=== PATIENT | female | born 1995 | race Caucasian/White ===

== ENCOUNTER 2023-04-13 07:52 | Outpatient (CLI) | payer OTHER, SELFPAY ==
[2023-04-13 08:49] LABS: Barbiturate Screen Urine Negative (Negative); Benzodiazepines Screen Urine Negative (Negative)
[2023-04-13 08:57] LABS: Amphetamine Screen Urine Negative (Negative); Cannabinoid Screen Urine Negative (Negative); Cocaine Screen Urine Negative (Negative); Methadone Screen Urine Negative (Negative); Opiate Screen Urine Negative (Negative); Phencyclidine Screen Urine Negative (Negative)
[2023-04-13 09:17] LABS: Basophils Percent Auto 0.1 % (0.2-1.2); Eosinophils Absolute Auto 0.2 K/mm3 (0-0.3); Eosinophils Percent Auto 2.1 % (0-4.4); Hematocrit 34.2 % (37.0-47.0); Hemoglobin 10.9 g/dL (12.0-15.0); Immature Granulocyte Absolute 0.03 K/mm3 (0.00-0.031); Immature Granulocyte Percent A 0.3 % (0-0.5); Lymphocytes Absolute Auto 1.68 K/mm3 (0.9-3.2); Lymphocytes Percent Auto 19.4 % (18.3-44.2); Mean Corpuscular HGB Conc 31.9 g/dl (32-36); Mean Corpuscular Volume 87.9 fl (80-100); Mean Platelet Volume 10.2 fl (7.4-10.4); Monocytes Absolute Auto 0.3 K/mm3 (0.1-0.6); Monocytes Percent Auto 3.3 % (2.6-8.5); Neutrophils Absolute Auto 6.5 K/mm3 (1.3-6.7); Neutrophils Percent Auto 74.8 % (45.5-73.1); Platelet Count Result 226 k/mm3 (150-375); Red Blood Count 3.89 M/mm3 (4.2-5.4); Red Cell Distribution Width 14.9 % (11.5-14.5); White Blood Count 8.7 K/mm3 (4.5-10.0)
[2023-04-13 09:31] LABS: Glucose 1 Hour PP 50gm Dose 148 mg/dL
[2023-04-13 10:07] LABS: HIV 1/2 Ab P24 Ag Result Negative (Negative)
[2023-04-13 10:42] LABS: Hepatitis B Surface Antigen Negative (Negative); Rubella IgG Antibody 6.4 IU/ML
[2023-04-13 10:46] LABS: HAV RESULT Negative (Negative); Hepatitis B Core IgM Result Negative (Negative)
[2023-04-13 10:58] LABS: Hepatitis C Virus Antibody Negative (Negative)
[2023-04-15 15:20] LABS: Rapid Plasma Reagin Non-Reactive (NonReactive)
[2023-04-17 12:52] LABS: Varicella IgG Antibody <135.00 Index (>=165.00)
== END 2023-04-13 07:53 | disposition home or self-care (01) ==
LOC: ANHLAB 07:54
PROVIDERS: PCP Pediatrics Adolescent Medicine; Visit Provider Obstetrics & Gynecology
DX: N94.89 Other specified conditions associated with female genital organs and menstrual cycle (principal)
CPT/HCPCS: 36415; 80074; 80307; 82947; 84702; 85025; 86592; 86644; 86703; 86747; 86762; 86787; 86850; 86900; 86901; 87086; G0432

== ENCOUNTER 2023-04-19 07:26 | Outpatient (CLI) | payer OTHER, SELFPAY ==
[2023-04-19 08:19] LABS: Glucose Fasting Gestational 94 mg/dL (>/=95)
[2023-04-19 10:25] LABS: Glucose 1 Hour Gest 160 mg/dL (>/=180)
[2023-04-19 11:07] LABS: Glucose 2 Hour Gest 132 mg/dL (>/= 155)
[2023-04-19 11:54] LABS: Glucose 3 Hour Gest 84 mg/dL (>/=140)
== END 2023-04-19 07:27 | disposition home or self-care (01) ==
LOC: ANHLAB 07:28
PROVIDERS: PCP Pediatrics Adolescent Medicine; Visit Provider Obstetrics & Gynecology
DX: R73.09 Other abnormal glucose (principal)
CPT/HCPCS: 36415; 82951; 82952

== ENCOUNTER 2023-06-24 09:45 | Outpatient (CLI) | payer OTHER, SELFPAY ==
[2023-06-24 12:11] LABS: Basophils Percent Auto 0.1 % (0.2-1.2); Eosinophils Absolute Auto 0.2 K/mm3 (0-0.3); Eosinophils Percent Auto 1.9 % (0-4.4); Hematocrit 33.7 % (37.0-47.0); Hemoglobin 10.6 g/dL (12.0-15.0); Immature Granulocyte Absolute 0.04 K/mm3 (0.00-0.031); Immature Granulocyte Percent A 0.4 % (0-0.5); Lymphocytes Absolute Auto 1.32 K/mm3 (0.9-3.2); Lymphocytes Percent Auto 13.9 % (18.3-44.2); Mean Corpuscular HGB Conc 31.5 g/dl (32-36); Mean Corpuscular Hemoglobin 28.1 pg (26-34); Mean Corpuscular Volume 89.4 fl (80-100); Mean Platelet Volume 10.7 fl (7.4-10.4); Monocytes Absolute Auto 0.4 K/mm3 (0.1-0.6); Monocytes Percent Auto 3.7 % (2.6-8.5); Neutrophils Absolute Auto 7.6 K/mm3 (1.3-6.7); Platelet Count Result 226 k/mm3 (150-375); Red Blood Count 3.77 M/mm3 (4.2-5.4); Red Cell Distribution Width 15.3 % (11.5-14.5); White Blood Count 9.5 K/mm3 (4.5-10.0)
[2023-06-24 12:28] LABS: Glucose 1 Hour PP 50gm Dose 123 mg/dL
[2023-06-24 13:03] LABS: HIV 1/2 Ab P24 Ag Result Negative (Negative)
[2023-07-02 17:46] LABS: Chenodeoxycholic Acid <0.5 umol/L (< OR = 3.9); Cholic Acid <0.5 umol/L (< OR = 2.8); Deoxycholic Acid <0.5 umol/L (< OR = 2.3); Total Bile Acids <1.5 umol/L (< OR = 8.3)
== END 2023-06-24 09:46 | disposition home or self-care (01) ==
PROVIDERS: Obstetrics & Gynecology; PCP Pediatrics Adolescent Medicine; Visit Provider Student in an Organized Health Care Education/Training Program
DX: O99.713 Diseases of the skin and subcutaneous tissue complicating pregnancy, third trimester (principal); L28.2 Other prurigo; Z3A.00 Weeks of gestation of pregnancy not specified
CPT/HCPCS: 36415; 82542; 82947; 85025; 86703; G0432

== ENCOUNTER 2023-08-05 08:33 | Outpatient (CLI) | payer OTHER, SELFPAY ==
--- NOTE | ~2023-08-05 | US_ITS ---
US OB limited 08/05/2023 09:04 Indication: Encounter for supervision of normal Procedure: High-resolution Limited obstetrical ultrasound Comparison: Outside Ultrasound dated 07/12/2023 Findings: There is a single living intrauterine in breech presentation. heart rate is 146 BPM. Placenta is fundal/posterior without previa. Amniotic fluid is below normal limits measurin g 6.0 cm (normal range for gestational age is 7.7-24.9 cm). Impression: 1: Single living intrauterine in breech presentation. 2: Oligohydramnios. Reviewed, dictated and finalized at location B. Impression: 1: Single living intrauterine in breech presentation. 2: Oligohydramnios.
== END 2023-08-05 08:34 | disposition home or self-care (01) ==
PROVIDERS: Visit Provider Obstetrics & Gynecology
DX: O41.00X0 Oligohydramnios, unspecified trimester, not applicable or unspecified (principal); O32.1XX0 Maternal care for breech presentation, not applicable or unspecified; Z3A.00 Weeks of gestation of pregnancy not specified
CPT/HCPCS: 76815

== ENCOUNTER 2023-08-06 08:28 | Outpatient (RCR) | payer OTHER, SELFPAY ==
--- NOTE | ~2023-08-06 | US_ITS ---
EXAMINATION: US OB BPP wo non-stress DATE: 08/06/2023 09:59 CDT INDICATION: Oligohydramnios TECHNIQUE: Real-time transabdominal obstetric ultrasound. FINDINGS: Comparison to 08/05/2023 There is a single living fetus in breech presentation. The placenta is fundal without placenta previ a. cardiac activity and movement is noted with a heart rate of 144 beats per minute. A FI is below normal limits measuring 5.6 cm (normal range for gestational age is 7.7-24.9 cm). Biophysical profile: breathin of 2 movement: 2 of 2 tone: 2 of 2 Amniotic flud pocket: 2 of 2 Total score: 8 of 8 IMPRESSION: 1. Single living intrauterine in breech presentation. 2: Total biophysical profile score of 8/8. 3: Oligohydramnios. Reviewed, dictated and finalized at location L.
[2023-08-06 09:10] VITALS: BP 113/59; PULSE 96
== END 2023-09-12 11:28 | disposition home or self-care (01) ==
LOC: ANHOBOP 08:28
PROVIDERS: Visit Provider Obstetrics & Gynecology
DX: O41.03X0 Oligohydramnios, third trimester, not applicable or unspecified (principal); Z3A.36 36 weeks gestation of pregnancy
CPT/HCPCS: 59025; 76819

== ENCOUNTER 2023-08-08 07:12 | Inpatient (IN) | payer OTHER, SELFPAY ==
[2023-08-08] VITALS (52 sets, daily range): BP systolic 82–120; BP diastolic 38–77; PULSE 58–91; RESP 15–18; TEMP 36.3–36.9; O2SAT 94–100; BMI 40.7
--- NOTE | 2023-08-08 07:22 | PM.IMHP ---
H&P: HPI History of Present Illness Date/Time: 08/07/23 18:33 Chief Complaint: scheduled Narrative: Sarah is a 28yo @ 37.1wks who presents for scheduled due to breech malpresentation and oligohydramnios. Oligo was diagnosed 08/05/23; did have reassuring NST/BPP on 08/06/23. She reports good movement. No ctx, vb, lof. She has had regular care. Her is complicated by: - Late PNC @ ~20wks - Asthma - Obesity; BMI 41 - Varicella and rubella non-immune - Abnormal 1 hour; normal 3 hours - BREECH MALPRESENTATION - Oligohydramnios Review of Systems Constitutional: Constitutional: Denies chills, Denies fever(s) and Denies headache(s) Eyes: Eyes: Denies change in vision ENT: Denies headache(s) Cardiovascular: Cardiovascular: Denies chest pain and Denies dyspnea Respiratory: Respiratory: Denies dyspnea Genitourinary: Genitourinary: Denies abnormal vaginal bleeding and Denies vaginal discharge Neurologic: Denies headache(s) Psychiatric: Psychiatric: Denies anxiety and Denies depression [facility] Past Medical History Medical History Asthma Obesity Family History Family History Other Unknown family medical history Social History Social History Smoking status: Never smoker Alcohol intake: never Substance use: never Substance use type: does not use Lack of Transportation: No Lack of Food: Never True Current Housing: I Have Housing Concerned About Future Housing: No Difficulty Paying Gas/Electric Bills: No Difficulty Paying for Meds: No Currently Unemployed: No Education: Associate Degree Difficulty w/ Childcare or Family Care: No Living arrangements: with family Additional living arrangements comments: spouse and kids Occupation/Education: unemployed Gender identity (if verbalized by the patient): Female Sexual Orientation (if Verbalized by the Patient): Straight or Heterosexual Spiritual care concerns: No Meds Home Medications and Allergies Home Medications Medication Instructions Recorded Confirmed Type vitamin no.167-folic acid 1 tablet PO DAILY 04/29/23 08/05/23 History 400 mcg-dha 25 mg chewable tablet (One-A-Day ) ferrous sulfate 325 mg (65 mg 325 mg PO BID 05/27/23 08/05/23 History iron) tablet albuterol sulfate 90 mcg/actuation 1 inh inhalation Q4H #8.5 grams 07/08/23 08/05/23 Rx aerosol inhaler triamcinolone acetonide 0.1 % 1 applic topical BID #80 grams 07/15/23 08/05/23 Rx topical cream Allergies Allergy/AdvReac Type Severity Reaction Status Date / Time Penicillins Allergy Hives Verified 08/05/23 15:14 Exam Const: General: cooperative, no acute distress and obese Nutritional Appearance: obese Orientation/consciousness: patient oriented x3 Resp: Effort & Inspection: normal respiratory effort Cardio: Rate: regular rate GI: GI Palp: No abdominal tenderness : Other: FHT's: 145's/ mod josseline/ + accels/ no decels - cat 1 TOCO: no ctx's Membranes: intact Presentation: BREECH ON BEDSIDE US Skin: General skin exam: normal color Neuro: General: patient oriented x3 Extrem: General: normal to inspection Psych: Appearance: grossly normal Affect: normal affect Attitude: cooperative Assessment and Plan Assessment and plan (1) Breech presentation: Qualifiers: Fetus number: single or unspecified fetus Qualified Code(s): O32.1XX0 - Maternal care for breech presentation, not applicable or unspecified Code(s): O32.1XX0 - Maternal care for breech presentation, not applicable or unspecified Status: Acute (2) Oligohydramnios: Qualifiers: Fetus number: single or unspecified fetus Trimester: third trimester Qualified Code(s): O41.03X0 - Ol
--- NOTE | 2023-08-08 07:29 | WPDHPUPDATE1 ---
History and Physical Update Update Date/Time: 08/08/23 07:29 History and Physical has been reviewed, including an updated exam of the patient. There are NO changes in the patient's condition. Risks, benefits, and alternatives have been discussed and questions answered. Patient agrees to proceed with procedure.
[2023-08-08] MEDS: LACTATED RINGERS 1,000 ML 125 ML IV CONT ×2 (07:30→07:53)
[2023-08-08] MEDS: ceFAZolin 2 GM/D5W 50 ML 2 GM/50 ML BAG IVPB (07:53)
[2023-08-08 08:01] LABS: Basophils Percent Auto 0.3 % (0.2-1.2); Eosinophils Absolute Auto 0.2 K/mm3 (0-0.3); Eosinophils Percent Auto 1.9 % (0-4.4); Hematocrit 35.2 % (37.0-47.0); Hemoglobin 11.2 g/dL (12.0-15.0); Immature Granulocyte Absolute 0.03 K/mm3 (0.00-0.031); Immature Granulocyte Percent A 0.4 % (0-0.5); Lymphocytes Absolute Auto 1.66 K/mm3 (0.9-3.2); Mean Corpuscular HGB Conc 31.8 g/dl (32-36); Mean Corpuscular Hemoglobin 28.9 pg (26-34); Mean Platelet Volume 10.8 fl (7.4-10.4); Monocytes Absolute Auto 0.5 K/mm3 (0.1-0.6); Monocytes Percent Auto 5.8 % (2.6-8.5); Neutrophils Absolute Auto 5.6 K/mm3 (1.3-6.7); Neutrophils Percent Auto 70.6 % (45.5-73.1); Platelet Count Result 237 k/mm3 (150-375); Red Blood Count 3.87 M/mm3 (4.2-5.4); Red Cell Distribution Width 16.9 % (11.5-14.5); White Blood Count 7.9 K/mm3 (4.5-10.0)
--- NOTE | 2023-08-08 08:08 | WPDANESEPPF ---
Anes - Initial Pre Proc Eval Procedure: Operation Date: 08/08/23 07:30 Proposed Procedures p Section - Tena Smith MD Date/Time: 08/08/23 08:08 Surgeon: Tena Smith MD Pre Op Diagnosis: C/S Patient Data Age: 28 Gender: F Height: 1.7 m Weight: 118 kg Last Vital Signs Pulse 91 08/08/23 07:46 BP 102/57 L 08/08/23 07:46 O2 Del Method Room Air 08/08/23 07:21 Allergies Allergy/AdvReac Type Severity Reaction Status Date / Time Penicillins Allergy Hives Verified 08/05/23 15:14 Home Medications Medication Instructions Recorded Confirmed Type vitamin no.167-folic acid 1 tablet PO DAILY 04/29/23 08/05/23 History 400 mcg-dha 25 mg chewable tablet (One-A-Day ) ferrous sulfate 325 mg (65 mg 325 mg PO BID 05/27/23 08/05/23 History iron) tablet albuterol sulfate 90 mcg/actuation 1 inh inhalation Q4H #8.5 grams 07/08/23 08/05/23 Rx aerosol inhaler triamcinolone acetonide 0.1 % 1 applic topical BID #80 grams 07/15/23 08/05/23 Rx topical cream Laboratory Tests 08/08/23 07:19 WBC 7.9 K/mm3 (4.5-10.0) RBC 3.87 L M/mm3 (4.2-5.4) Hgb 11.2 L g/dL (12.0-15.0) Hct 35.2 L % (37.0-47.0) MCV 91.0 fl (80-100) MCH 28.9 pg (26-34) MCHC 31.8 L g/dl (32-36) RDW 16.9 H % (11.5-14.5) Plt Count 237 k/mm3 (150-375) MPV 10.8 H fl (7.4-10.4) Immature Gran % (Auto) 0.4 % (0-0.5) Neut % (Auto) 70.6 % (45.5-73.1) Lymph % (Auto) 21.0 % (18.3-44.2) [place] % (Auto) 5.8 % (2.6-8.5) Eos % (Auto) 1.9 % (0-4.4) Baso % (Auto) 0.3 % (0.2-1.2) Lymph # (Auto) 1.66 K/mm3 (0.9-3.2) [place] # (Auto) 0.5 K/mm3 (0.1-0.6) Eos # (Auto) 0.2 K/mm3 (0-0.3) Baso # (Auto) 0.0 K/mm3 (0.0-0.1) Abs Immat Gran (auto) 0.03 K/mm3 (0.00-0.031) Absolute Neuts (auto) 5.6 K/mm3 (1.3-6.7) Absolute Nucleated RBC 0.0 K/mm3 (0.0-0.012) Nucleated RBC % 0.0 % (0.0-0.2) RPR Pending Patient hx anesthesia problems: none Family hx anesthesia problems: none Results Review: All pre-operative results and documents have been reviewed as part of the pre-operative evaluation. [facility] Past Medical History Medical History Asthma Obesity Family History Family History Other Unknown family medical history Social History Social History Smoking status: Never smoker Second hand tobacco smoke exposure: No Alcohol intake: never Substance use: never Substance use type: does not use Lack of Transportation: No Lack of Food: Never True Current Housing: I Have Housing Concerned About Future Housing: No Difficulty Paying Gas/Electric Bills: No Difficulty Paying for Meds: No Currently Unemployed: No Education: High School Diploma/GED Difficulty w/ Childcare or Family Care: No Living arrangements: with family Additional living arrangements comments: spouse and kids Occupation/Education: unemployed Gender identity (if verbalized by the patient): Female Sexual Orientation (if Verbalized by the Patient): Straight or Heterosexual Spiritual care concerns: No Anes - Eval Final PreProcedure Day of Procedure 08/08/23 08:08 Patient weight: morbidly obese Heart: regular rate and rhythm Lungs: clear to auscultation Airway: Mallampati scale class II Neurological: alert and oriented Last oral intake: >/= 8 hours ASA classification: III Emergent: no Anesthetic plan: proceed Anesthesia type and monitoring: regional spinal and standard monitoring Results Review: All pre-operative results and documents have been reviewed as part of the pre-operative evaluation. Informed Consent: The patient's anesthetic plan and its attendant risks and benefits were discussed with
--- NOTE | 2023-08-08 09:05 | P.PCNOB_ITS ---
OB - Delivery Note Procedure Delivery date: 08/08/23 Procedure: Procedures Operation Date: 08/08/23 07:30 <No data on this case meets the specified criteria> Events: Breech Presentation and Oligohydramnios Route of delivery: Quantitative Blood Loss (ml): 385 Anesthesia type: Spinal Disposition: Floor D[place]ne Baby Date of : 08/08/23 Time of : 08:29 Weeks of gestation at delivery: 37 (.1) Infant gender: Female Weight (pounds): 7 Weight (ounces): 1 presentation: breech Placenta delivery description: Expressed Cord Vessel Description: 3 Vessels and Delayed Cord Clamping score one minute: 8 score five minutes: 9 Narrative: She was counseled on all risks and benefits in detail. She was taken to the operating room where spinal was placed. She was then prepped and draped in the normal sterile fashion. She received 2g Ancef and a time out was performed. A Pfannenstiel incision was made in the skin and carried down to the underlying fascia. The fascia was nicked on either side of the midline and the fascial incision was extended laterally and superiorly using curved Hernandez scissors. The fascia was then elevated using Vera clamps and the underlying rectus muscles were dissected off the fascia, superiorly and inferiorly. The rectus muscles were then in the midline and the peritoneum was entered bluntly. Once adequate exposure was obtained, a Mobius self retractor was placed within the abdomen. A bladder flap was created. A low transverse incision was made on the lower uterine segment and clear fluid was noted. The buttocks were brought to the hysterotomy and the fetus was delivered doing normal breech maneuvers without issue. The infant had spontaneous cry and the mouth and nose were bulb suctioned. The cord was delayed, but then doubly clamped and cut and the was handed off to the awaiting pediatric nurse. A segment of the cord was collected for cord gases. The remaining cord blood was collected for typing. With pitocin infusing, the placenta delivered with gentle traction on the cord without complications. The uterus was then cleared out of all clots and debris using a clean, moist lap. The hysterotomy was then repaired in a running, interlocking fashion using 0 Vicryl. A second layer imbricating suture was then made using 0 Vicryl. An additional figure of eight stitch using 0 Vicryl was placed on the right, lower side of the hysterotomy, and it was found to be hemostatic and good uterine tone was noted. The bilateral adnexa were examined and found to be normal. The pelvis was cleared of all clots and fluid. The Mobius retractor was removed from the abdomen. The peritoneum, muscle, and fascia were examined and made hemostatic with bovie cautery. The fascia was then repaired using a 0 Vicryl suture in a running fashion. The subcutaneous tissue was then irrigated and made hemostatic with bovie cautery. The subcutaneous tissue was then reapproximated using 2-0 Vicryl. The skin was then closed using 4-0 Monocryl in a running subcuticular fashion. Sponge, lap, needle and instrument counts were correct at the end of the procedure x2. The patient tolerated the procedure well and was taken to recovery in a stable condition. [facility] Delivery Billing Delivery Delivery: Delivery Charge
[2023-08-08] MEDS: OXYTOCIN 30 UNITS/NS 500 ML 30 UNITS/500 ML BAG 125 UNITS IV CONT (10:15)
[2023-08-08] MEDS: fentaNYL CITRATE INJ (*CRX) 100 MCG/2 ML VIAL 25 MCG IV PUSH (12:10)
--- NOTE | 2023-08-08 12:15 | OBPPTRN ---
Patient transferred to post room #283 via stretcher. Support person present. Oriented to unit, room, information board, rooming in, admission packet and security measures. Patient verbalizes understanding.
[2023-08-08] MEDS: KETOROLAC 30 MG/ML VIAL (*BKC) IV PUSH ×2 (13:14→18:59)
--- NOTE | 2023-08-08 13:25 | PC.NURSE ---
Breast pump provided due to separation from infant. Instructions given on cleaning, care, usage, that there should be no pain, pumping schedule for milk production, collection, and storage of human milk. Patient was assessed for correct placement, flange size, to pump for comfort and nipple stretching/stimulation for adequate milk production every 3 hours (8 times in 24 hours) 1-2 times at night. Mother voiced understanding of the education shared along with mom and baby guide for additional resource information.
[2023-08-08] MEDS: DEXTROSE 5%/0.45% SOD CHL 1,000 ML 125 ML IV CONT (15:00)
[2023-08-08] MEDS: DOCUSATE SODIUM 100 MG CAPSULE PO (16:35)
[2023-08-08] MEDS: HYDROcodone/acetaminophen (*CRX) 5-325 MG TABLET 1 TAB PO (22:52)
[2023-08-08] MEDS: ALBUTEROL SULFATE (*SP) AEROSOL 1 PUFF INHALATION (23:11)
[2023-08-09] MEDS: HYDROcodone/acetaminophen (*CRX) 5-325 MG TABLET 1 TAB PO ×3 (02:25→08:54)
[2023-08-09] MEDS: IBUPROFEN 600 MG TABLET PO ×3 (02:25→15:01)
[2023-08-09 02:56] LABS: Basophils Percent Auto 0.3 % (0.2-1.2); Eosinophils Absolute Auto 0.2 K/mm3 (0-0.3); Eosinophils Percent Auto 1.8 % (0-4.4); Hematocrit 30.2 % (37.0-47.0); Hemoglobin 9.7 g/dL (12.0-15.0); Immature Granulocyte Absolute 0.04 K/mm3 (0.00-0.031); Immature Granulocyte Percent A 0.4 % (0-0.5); Lymphocytes Absolute Auto 2.44 K/mm3 (0.9-3.2); Lymphocytes Percent Auto 25.3 % (18.3-44.2); Mean Corpuscular HGB Conc 32.1 g/dl (32-36); Mean Corpuscular Hemoglobin 29.6 pg (26-34); Mean Corpuscular Volume 92.1 fl (80-100); Mean Platelet Volume 10.8 fl (7.4-10.4); Monocytes Absolute Auto 0.7 K/mm3 (0.1-0.6); Monocytes Percent Auto 7.2 % (2.6-8.5); Neutrophils Absolute Auto 6.3 K/mm3 (1.3-6.7); Platelet Count Result 218 k/mm3 (150-375); Red Blood Count 3.28 M/mm3 (4.2-5.4); Red Cell Distribution Width 16.8 % (11.5-14.5); White Blood Count 9.7 K/mm3 (4.5-10.0)
--- NOTE | 2023-08-09 07:35 | PM.OBPNVD ---
OB - PN: Subj Subjective Date/time seen: 08/09/23 07:35 Narrative: POD#1 Sarah reports doing well today. 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 Her pain is controlled. She is tolerating regular diet, voiding, passing gas, and ambulating without issues. She denies any issues with her incision. She is breast feeding. OB - PN: Obj Data Labs 08/09/23 02:30 Labs: Laboratory Results - last 24 hr 08/08/23 08/09/23 07:19 02:30 WBC 7.9 9.7 RBC 3.87 L 3.28 L Hgb 11.2 L 9.7 L Hct 35.2 L 30.2 L MCV 91.0 92.1 MCH 28.9 29.6 MCHC 31.8 L 32.1 RDW 16.9 H 16.8 H Plt Count 237 218 MPV 10.8 H 10.8 H Immature Gran % (Auto) 0.4 0.4 Neut % (Auto) 70.6 65.0 Lymph % (Auto) 21.0 25.3 [place] % (Auto) 5.8 7.2 Eos % (Auto) 1.9 1.8 Baso % (Auto) 0.3 0.3 Lymph # (Auto) 1.66 2.44 [place] # (Auto) 0.5 0.7 H Eos # (Auto) 0.2 0.2 Baso # (Auto) 0.0 0.0 Abs Immat Gran (auto) 0.03 0.04 H Absolute Neuts (auto) 5.6 6.3 Absolute Nucleated RBC 0.0 0.0 Nucleated RBC % 0.0 0.0 Blood Type A Positive Antibody Screen Negative OB - PN A/P Assessment and Plan (1) S/P section: Code(s): Z98.891 - History of uterine scar from previous surgery Status: Acute (2) Oligohydramnios: Qualifiers: Fetus number: single or unspecified fetus Trimester: third trimester Qualified Code(s): O41.03X0 - Oligohydramnios, third trimester, not applicable or unspecified Code(s): O41.00X0 - Oligohydramnios, unspecified trimester, not applicable or unspecified Status: Acute (3) Breech presentation: Qualifiers: Fetus number: single or unspecified fetus Qualified Code(s): O32.1XX0 - Maternal care for breech presentation, not applicable or unspecified Code(s): O32.1XX0 - Maternal care for breech presentation, not applicable or unspecified Status: Acute Plan day: 1 Plan: routine care Time Spent With Patient Time: Total time spent is greater than 50% in coordination of care (as documented) at patient's floor/unit and/or counseling patient: Review of Systems Constitutional: Constitutional: Denies chills, Denies fever(s) and Denies headache(s) Eyes: Eyes: Denies change in vision ENT: Denies dizziness and Denies headache(s) Cardiovascular: Cardiovascular: Denies chest pain, Denies palpitations and Denies dyspnea Respiratory: Respiratory: Denies cough and Denies dyspnea Gastrointestinal: Gastrointestinal: Denies nausea and Denies vomiting Genitourinary: Comments: normal bleeding Neurologic: Denies dizziness and Denies headache(s) Endocrine: Endocrine: Denies palpitations Exam Const: General: cooperative, comfortable and no acute distress Orientation/consciousness: patient oriented x3 Resp: Effort & Inspection: normal respiratory effort Auscultation: clear to auscultation bilaterally Cardio: Rate: regular rate GI: Inspection: non-distended and incision (covered with clean dressing) GI Palp: Yes abdominal tenderness (appropriate) and Yes Soft to palpation Auscultation: normal bowel sounds : Other: fundus firm Skin: General skin exam: normal color Neuro: General: patient oriented x3 Extrem: General: normal to inspection Psych: Appearance: grossly normal Affect: normal affect Attitude: cooperative
--- NOTE | 2023-08-09 08:06 | PM.OBPNVD ---
OB - PN: Subj Subjective Date/time seen: 08/09/23 08:06 Patient comments: no complaints, pain well controlled, tolerating diet and flatus present Narrative: Patient resting comfortably in bed this morning. She states her pain is controlled with p.o. medications. She states her bleeding is improving. She is tolerating p.o. and denies any nausea or vomiting. OB - PN: Obj Data Labs 08/09/23 02:30 Labs: Laboratory Results - last 24 hr 08/08/23 08/09/23 07:19 02:30 WBC 9.7 RBC 3.28 L Hgb 9.7 L Hct 30.2 L MCV 92.1 MCH 29.6 MCHC 32.1 RDW 16.8 H Plt Count 218 MPV 10.8 H Immature Gran % (Auto) 0.4 Neut % (Auto) 65.0 Lymph % (Auto) 25.3 [place] % (Auto) 7.2 Eos % (Auto) 1.8 Baso % (Auto) 0.3 Lymph # (Auto) 2.44 [place] # (Auto) 0.7 H Eos # (Auto) 0.2 Baso # (Auto) 0.0 Abs Immat Gran (auto) 0.04 H Absolute Neuts (auto) 6.3 Absolute Nucleated RBC 0.0 Nucleated RBC % 0.0 Blood Type A Positive Antibody Screen Negative OB - PN A/P Plan day: 1 Plan: routine care Comments: patient doing well H/H 9.7/30.2, will continue iron supplementation afebrile, VSS incision C/D/I encouraged ambulation today continue routine post op care Time Spent With Patient Time: Total time spent is greater than 50% in coordination of care (as documented) at patient's floor/unit and/or counseling patient: Time with patient: less than 15 minutes Review of Systems Constitutional: Constitutional: Reports no additional constitutional complaints Cardiovascular: Cardiovascular: Reports no additional cardiovascular complaints Respiratory: Respiratory: Reports no additional respiratory complaints Gastrointestinal: Gastrointestinal: Reports no additional gastrointestinal complaints Genitourinary: Genitourinary: Reports no additional female genitourinary complaints Exam Const: General: comfortable and no acute distress Resp: Effort & Inspection: normal respiratory effort Auscultation: clear to auscultation bilaterally Cardio: Rate: regular rate GI: GI Palp: Yes Soft to palpation, Yes Tenderness to palpation present (GI) (around incision ) and No Guarding due to palpation present (GI) Auscultation: normal bowel sounds Other: incision C/D/I, covered with Dermabond Psych: Appearance: grossly normal Mental Status: mental status grossly normal Affect: normal affect
[2023-08-09] MEDS: DOCUSATE SODIUM 100 MG CAPSULE PO ×2 (08:18→16:58)
[2023-08-09] MEDS: POLYSACCHARIDE IRON COMPLEX 150 MG CAPSULE PO ×2 (08:18→16:58)
[2023-08-09] MEDS: MULTIVIT/MIN/PREN/FOL AC/IRON TABLET 1 TAB PO (08:18)
[2023-08-09 09:30] VITALS: BP 99/57; PULSE 85; RESP 16; TEMP 36.8; O2SAT 97
[2023-08-09] MEDS: LIDOCAINE 5% PATCH 1 PATCH TRANSDERM (10:40)
[2023-08-09 10:56] LABS: Rapid Plasma Reagin Non-Reactive (NonReactive)
[2023-08-09] MEDS: SIMETHICONE 80 MG TAB.CHEW PO ×2 (11:55→15:02)
[2023-08-09] MEDS: HYDROcodone/acetaminophen (*CRX) 10-325 MG TABLET 1 TAB PO ×3 (11:55→18:31)
--- NOTE | 2023-08-09 14:16 | WPDANLDPN2 ---
Anes-Prog Note L&D Date/Time: 08/09/23 14:16 Comfortable throughout: section Neuraxial method: spinal Epidural/Spinal procedure site: clean & non-tender Neuro status: Neuro function grossly intact. Cardiovascular status: normal Respiratory status: normal Airway patency: baseline Mental status: baseline Post-Op hydration status: normal Vital Signs: Last Vital Signs Temp 36.8 C 08/09/23 09:30 Pulse 85 08/09/23 09:30 Resp 16 08/09/23 09:30 BP 99/57 L 08/09/23 09:30 Pulse Ox 97 08/09/23 09:30 O2 Del Method Room Air 08/09/23 08:20 Pain score (VAS): 2/10 I/O: Intake & Output 08/08/23 08/09/23 08/09/23 23:59 07:59 15:59 Intake Total 1540 1000 Output Total 2600 1700 Balance -1060 -700 Post-procedural complaints: none Patient feedback: Patient satisfied with anesthetic care.
--- NOTE | 2023-08-09 14:16 | WPDANLDNPN2 ---
Anes-Prog Note L&D-Neuraxial Date/Time: 08/09/23 14:16 Neuraxial medications: intrathecal PF morphine Opiod-related complaints: none Patient feedback: Patient satisfied with post-operative pain management.
--- NOTE | 2023-08-09 19:33 | PC.NURSE ---
[id number] Mother verbalizes she is able to independently latch with appropriate positioning/alignment. She denies any nipple discomfort and is responsively . is currently meeting outcomes for weight, output, jaundice and feeding frequencies of 8-12 times in 24 hours. Mother declines any additional assistance/education at this time. Mother is encouraged to call for assistance if her doesn?t latch or there is discomfort with latching. Mother voiced understanding of information shared, Shamika RN was a big help today and I reminded of the mom/baby guide for an additional resource. Reported to the primary RN.
[2023-08-09 20:45] VITALS: BP 112/71; PULSE 82; RESP 16; TEMP 36.4; O2SAT 97
[2023-08-10] MEDS: IBUPROFEN 600 MG TABLET PO ×3 (04:00→19:40)
[2023-08-10] MEDS: HYDROcodone/acetaminophen (*CRX) 10-325 MG TABLET 1 TAB PO ×2 (04:03→15:10)
[2023-08-10] MEDS: DOCUSATE SODIUM 100 MG CAPSULE PO ×2 (09:35→17:36)
[2023-08-10] MEDS: MULTIVIT/MIN/PREN/FOL AC/IRON TABLET 1 TAB PO (09:35)
[2023-08-10] MEDS: POLYSACCHARIDE IRON COMPLEX 150 MG CAPSULE PO ×2 (09:35→17:36)
[2023-08-10 09:40] VITALS: BP 100/52; PULSE 88; RESP 18; TEMP 36.4; O2SAT 97
--- NOTE | 2023-08-10 10:46 | PM.OBDSVD ---
DS: Admitting Diagnosis Discharge Date 08/10/23 Admitting Diagnosis malpresentation oligohydramnios intrauterine at term DS: Discharge Diagnosis Discharge Diagnosis (1) Breech presentation: Qualifiers: Fetus number: single or unspecified fetus Qualified Code(s): O32.1XX0 - Maternal care for breech presentation, not applicable or unspecified Code(s): O32.1XX0 - Maternal care for breech presentation, not applicable or unspecified Status: Acute (2) Oligohydramnios: Qualifiers: Fetus number: single or unspecified fetus Trimester: third trimester Qualified Code(s): O41.03X0 - Oligohydramnios, third trimester, not applicable or unspecified Code(s): O41.00X0 - Oligohydramnios, unspecified trimester, not applicable or unspecified Status: Acute (3) S/P section: Code(s): Z98.891 - History of uterine scar from previous surgery Status: Acute OB - DS: Summary OB Procedures : None OB Procedures Intrapartum: OB Procedures: : None Peripartum Data Delivery Method: Section Procedures: Procedures Operation Date: 08/08/23 07:30 Actual Procedure Side Surgeon p Section Not Applicable Tena Smith MD complications: none Status at Discharge Functional status at discharge: independent ambulation Overall status at discharge: patient is progressing back to baseline Time Spent with Patient Time attestation: Total time spent providing and/or coordinating discharge services: Time spent: Less than 30 minutes Exam Const: General: comfortable and no acute distress Resp: Effort & Inspection: normal respiratory effort Auscultation: clear to auscultation bilaterally Cardio: Rate: regular rate GI: Inspection: non-distended GI Palp: Yes Soft to palpation, No Firmness to palpation present (GI), Yes Tenderness to palpation present (GI) (mild tenderness over incision ) and No Guarding due to palpation present (GI) Auscultation: normal bowel sounds Psych: Appearance: grossly normal Mental Status: mental status grossly normal DS: Data Data Completed and Pending Pending studies at discharge: Pending at discharge 08/08/23 08:31 Surgical [PTH] Routine Labs on day of discharge: Labs from last 24 hours 08/08/23 07:19 RPR Non-reactive Discharge Plan Discharge Attending physician on discharge: Tena Smith Discharging Clinician: Tena Smith Anticipated Discharge Date/Time: 08/11/23 11:00 Patient Disposition: Home, Self-Care Activity: may shower, may drive after 2 weeks and pelvic rest Diet: regular Discharge Instructions: No heavy lifting >10lbs for 6 weeks. Remove dressing on 08/14/23. Patient Instructions: (DC) Stand Alone Forms: General Discharge Information Follow-up/Referrals: Tena Smith MD [Physician] - 4 Weeks Discharge Medications: New hydrocodone-acetaminophen 5-325 mg Tablet 1 tablet PO Q3H PRN (Reason: Moderate Pain (4-6)) Qty: 24 0RF docusate sodium 100 mg Capsule 100 mg PO BID Qty: 120 0RF ibuprofen 600 mg Tablet 600 mg PO Q6H PRN (Reason: Cramping) Qty: 40 0RF acetaminophen 500 mg tablet 1,000 mg PO TID Qty: 60 0RF Continued One-A-Day 400 mcg- 25 mg tablet,chewable 1 tablet PO DAILY ferrous sulfate 325 mg (65 mg iron) tablet 325 mg PO BID albuterol sulfate 90 mcg/actuation HFA aerosol inhaler 1 inh inhalation Q4H Qty: 8.5 0RF Discontinued triamcinolone acetonide 0.1 % cream 1 applic topical BID Qty: 80 0RF Date of admission: 08/08/23 07:12 Primary Care Provider: 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
[2023-08-10] MEDS: LIDOCAINE 5% PATCH 1 PATCH TRANSDERM (15:12)
[2023-08-10] MEDS: HYDROcodone/acetaminophen (*CRX) 5-325 MG TABLET 1 TAB PO (19:40)
[2023-08-10] MEDS: SIMETHICONE 80 MG TAB.CHEW PO (19:40)
[2023-08-10 20:05] VITALS: BP 122/72; PULSE 84; RESP 16; TEMP 36.3; O2SAT 100
[2023-08-11] MEDS: SIMETHICONE 80 MG TAB.CHEW PO (00:01)
[2023-08-11] MEDS: HYDROcodone/acetaminophen (*CRX) 10-325 MG TABLET 1 TAB PO (00:01)
[2023-08-11] MEDS: IBUPROFEN 600 MG TABLET PO ×2 (03:28→09:11)
[2023-08-11] MEDS: LIDOCAINE 5% PATCH 1 PATCH TRANSDERM (03:29)
[2023-08-11] MEDS: HYDROcodone/acetaminophen (*CRX) 5-325 MG TABLET 1 TAB PO ×2 (03:29→09:11)
[2023-08-11 07:45] VITALS: BP 119/71; PULSE 80; RESP 18; TEMP 36.6; O2SAT 98
[2023-08-11] MEDS: POLYSACCHARIDE IRON COMPLEX 150 MG CAPSULE PO (09:11)
[2023-08-11] MEDS: MULTIVIT/MIN/PREN/FOL AC/IRON TABLET 1 TAB PO (09:11)
[2023-08-11] MEDS: DOCUSATE SODIUM 100 MG CAPSULE PO (09:11)
[2023-08-11] MEDS: MEASLES,MUMPS,RUBELLA VACCINE 0.5 ML VIAL SUB-Q (10:48)
[2023-08-13 10:59] VITALS: BP 132/85; PULSE 76; RESP 18; TEMP 36.7; O2SAT 100
== END 2023-08-11 11:55 | disposition home or self-care (01) | DRG 540 ==
LOC: ANHOB2 08-11 10:14 → ANHLDR 08-13 11:14 → ANHOB2 08-13 11:14
PROVIDERS: Admitting Provider Obstetrics & Gynecology; Visit Provider Student in an Organized Health Care Education/Training Program
PROC: 10D00Z1 Extraction of Products of Conception, Low, Open Approach (ICD-10-PCS; CPT 59514; principal; 2023-08-08 07:30)
DX: O34.219 Maternal care for unspecified type scar from previous cesarean delivery (principal); O41.03X0 Oligohydramnios, third trimester, not applicable or unspecified; O32.1XX0 Maternal care for breech presentation, not applicable or unspecified; O99.214 Obesity complicating childbirth; O99.52 Diseases of the respiratory system complicating childbirth; Z3A.37 37 weeks gestation of pregnancy; Z37.0 Single live birth; J45.909 Unspecified asthma, uncomplicated
CPT/HCPCS: 36415; 85025; 86592; 86850; 86900; 86901; 88307; 90710; A9270; J0690; J1200; J1885; J2274; J2405; J2590; J3010; J7120

== ENCOUNTER 2024-11-19 09:07 | Outpatient (CLI) | payer OTHER, SELFPAY ==
[2024-11-19 10:34] LABS: Basophils Percent Auto 0.3 % (0.2-1.2); Eosinophils Absolute Auto 0.4 K/mm3 (0-0.3); Eosinophils Percent Auto 5.5 % (0-4.4); Hematocrit 36.1 % (37.0-47.0); Hemoglobin 11.7 g/dL (12.0-15.0); Immature Granulocyte Absolute 0.03 K/mm3 (0.00-0.031); Immature Granulocyte Percent A 0.4 % (0-0.5); Lymphocytes Absolute Auto 1.42 K/mm3 (0.9-3.2); Lymphocytes Percent Auto 19.1 % (18.3-44.2); Mean Corpuscular HGB Conc 32.4 g/dl (32-36); Mean Corpuscular Hemoglobin 27.7 pg (26-34); Mean Corpuscular Volume 85.3 fl (80-100); Mean Platelet Volume 10.2 fl (7.4-10.4); Monocytes Absolute Auto 0.3 K/mm3 (0.1-0.6); Monocytes Percent Auto 3.9 % (2.6-8.5); Neutrophils Absolute Auto 5.3 K/mm3 (1.3-6.7); Neutrophils Percent Auto 70.8 % (45.5-73.1); Platelet Count Result 257 k/mm3 (150-375); Red Blood Count 4.23 M/mm3 (4.2-5.4); White Blood Count 7.4 K/mm3 (4.5-10.0)
[2024-11-19 10:52] LABS: Glucose 1 Hour PP 50gm Dose 145 mg/dL
[2024-11-19 11:31] LABS: HIV 1/2 Ab P24 Ag Result Negative (Negative)
[2024-11-19 12:41] LABS: Hepatitis B Surface Antigen Negative (Negative); Rubella IgG Antibody 19.2 IU/ML
[2024-11-19 14:24] LABS: Rapid Plasma Reagin Non-Reactive (NonReactive)
[2024-11-20 07:23] LABS: Varicella IgG Antibody <1.00 S/CO
== END 2024-11-19 09:08 | disposition home or self-care (01) ==
LOC: ANHLAB 09:08
PROVIDERS: Visit Provider Obstetrics & Gynecology
DX: N91.2 Amenorrhea, unspecified (principal)
CPT/HCPCS: 36415; 81220; 82947; 85025; 86592; 86644; 86703; 86747; 86762; 86787; 86850; 86900; 86901; 87086; 87340; G0432

== ENCOUNTER 2025-01-16 14:49 | Emergency (ER) | payer OTHER, MEDICAID, SELFPAY ==
--- OUTSIDE RECORDS SUMMARY | 2025-01-16 14:53 | XMS_ITS | Clinical Summary ---
Author Organization [employer] [facility] Address [address] [place] [address] Care Team Providers Care Finance Associate Name Role Phone Unavailable Primary Care Provider Unavailabl e Social History Tobacco Use Types Packs/Day Years Used Date Smoking Tobacco: Never Assessed Comments Unknown Sex and Gender Information Value Date Recorded Sex Assigned at Not on file Legal Sex Female 11:14 AM CDT Gender Identity Not on file Sexual Orientation Not on file Plan of Treatment Health Maintenance Due Date Last Done Comments HEPATITIS B VACCINES (1 of 3 - 19+ 3-dose series) 2014 PAP SMEAR 2016 INFLUENZA VACCINE (#1) 2024 DTAP/TDAP/TD VACCINES (2 - T d or Tdap) 12/18/2029 12/18/2019 HPV VACCINES Aged Out No longer eligi ble based on patient's age to complete this topic PNEUMOCOCCAL VACCINE 0-49 YEARS Aged Out No longer eligible based on patient's age to complete this topic
--- OUTSIDE RECORDS SUMMARY | 2025-01-16 14:53 | XMS_ITS | Clinical Summary ---
Author Organization [facility] Address [address] [place] [address] Care Team Providers Care Treating Inspector Name Role Phone No, Physician Primary Care Provider [phone] Allergies Active Allergy Reactions Criticality Noted Date Comments Penicillins Hives Medium 03/03/2020 Medications 25/iron fum/folic/dha (-1 ORAL) Take by mouth Active albuterol HFA (PROVENTIL HFA,VENTOLIN HFA,PROAIR HFA) 90 mcg/actuation inhaler Inhale 2 puffs every 6 (six) hours as needed for wheezing Active Active Problems Problem Noted Date Diagnosed Date Normal spontaneous vaginal delivery 03/02/2020 Overview (03/04/2020): # ID: Afebrile. No signs/symptoms of infection. #Rubella NI: for PP MMR. #VZV NI: For PP varivax # Heme: EBL 300 mL. No symptoms acute blood loss anemia. #Anemia: Continue iron supplementation. # CV/Pulm: Vital signs stable, within normal limits. # GI/: Tolerating PO. Voiding spontaneously. # Pain: Controlled with above regimen. # Post DVT prophylaxis: Patient has the following moderate risk factors: BMI>30. 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 -Rubella NI -VZV NI Still needs 3 hr GTT--getting when off work next. Anemia: Fe BID BOY [x] Labs: 1st trimester completed [x] Genetic Screening: undecided [x] Baby ASA: n/a [x] 1hr GCT at 24-28wks 144 3hr: Avoided lab due to COVID risk; normal FBS and 1-hour PP for one week [x] Tdap (27-36wks):12/18/2019 -AR [] Flu Shot: [] Rhogam (if Rh neg): n/a, A+ [x] GBS at 36 wks: negative [x] folder provided [x] control method: POP [x] 39 weeks discussion of IOL vs. Expectant management: Might consider [] Mode of delivery: No to [facility] e[facility]OL 03/02/2020 @ 8pm Daniele/Claudy Immunizations Immunization Administration Dates Next Due Influenza, Unspecified 08/11/2020 MMR 03/04/2020 Tdap 12/18/2019 Varicella 03/04/2020 Medical History Medical History Date Comments Asthma Family History Medical History Relation Name Comments No Known Problems Father Breast cancer Father's Sister No Known Problems Mother Breast cancer Mother's Sister Breast cancer Paternal Grandmother Ovarian cancer Paternal Grandmother Relation Name Status Comments Father Alive Father's Sister Alive Mother Alive Mother's Sister Alive Paternal Grandmother Social History Tobacco Use Types Packs/Day Years Used Date Smoking Tobacco: Never Smokeless Tobacco: Never Alcohol Use Standard Drinks/Week Comments Not Currently 0 (1 standard drink = 0.6 oz pur e alcohol) Humiliation, Afraid, Rape, and Kick questionnair e Answer Date Recorded Fear of Current or Ex-Partner No Emotionally Abused No 07/21/2019 Physically Abused No 07/21/2019 Sexually Abused No 07/21/2019 Social Connection and Isolation Panel [NHANES] A nswer Date Recorded Frequency of Communication with Friends and Fami ly Not on file 07/21/2019 Frequency of Social Gatherings with Friends and Family Not on file 07/21/2019 Attends Latter-Day Services Not on file 07/21 Active Member of Clubs or Organizations Not on f ile 07/21/2019 Attends Club or Organization Meetings Not on faisal e 07/21/2019 Marital Status 07/21/2019 Exercise Vital Sign Answer Date Recorde d Days of Exercise per Week 3 days 2018 Minutes of Exercise per Session 30 min 07/21/2019 [place] Depression Scale Answer Date Recorded [place] Depression Scale Total 2 04/14/2020 The thought of harming myself has occurred to me . Never 04/14/2020 Comments No Sex and Gender Information Value Date Recorded Sex Assigned at Not on file Legal Sex Female 10:27 AM CDT Gender Identity Female 02/11/2020 6:21 PM CDT Sexual Orientation Choose not to disclose 2019 6:22 PM CDT Obstetrics History Para Term AB IAB SAB Ectopic Multiple Livin g Live Births 2 2 2 0 2 2 Date Outcome GA Total Labor Labor/2nd/3rd Weight Sex Type Anes PTL Amy A1 A5 Name Clin 2014 Term 40w 0d 3.493 kg (7 lb 11.2 oz) M Vag-S pont Livin g Complications:None 020 Term 39w 1d 7h 57m 7h 47m/0h 06m/0h 04m 2.87 kg (6 lb 5.2 oz) M Vag-S pont Epidur al N Livin g 8 9 AMAIRANI VARGHESE, Mundo waterman MD Complications:None Delivery [facility] ([facility]) Comments 2020: of baby boy with n ashlyn TBD ([address], [address]) Last Filed Vital Signs Vital Sign Reading Time Taken Comments Blood Pressure 112/64 11/15/2020 3:41 PM VIDEO GAME TESTER Pulse 87 03/04/2020 8:05 AM CDT Temperature 36.8 C (98.2 F) 03/04/2020 8:05 AM CDT Respiratory Rate 18 11/15/2020 3:41 PM VIDEO GAME TESTER Oxygen Saturation 99% 03/04/2020 8:05 AM CDT Inhaled Oxygen Concentration - - Weight 113.9 kg (251 lb) 11/15/2020 3:41 PM VIDEO GAME TESTER Height 167.6 cm (5' 6 ) 11/15/2020 3:41 PM VIDEO GAME TESTER Body Mass Index 40.51 11/15/2020 3:41 PM VIDEO GAME TESTER Plan of Treatment Not on file Insurance O Advance Directives For more information, please contact: [phone] * Full Code (Latest Code Status on File) Date Activated Date Inactivated Comments 03/03/2020 6:21 AM 03/04/2020 4:24 PM * Full Code Date Activated Date Inactivated Comments 03/02/2020 9:01 PM 03/03/2020 6:21 AM Full CPR in ca se of cardiopulmonary arrest Care Teams Treating Inspector Relationship Specialty Start Date End Date No, Physician PCP - General 07/03/19
--- OUTSIDE RECORDS SUMMARY | 2025-01-16 14:53 | XMS_ITS | Referral Summary ---
Author Organization [facility] Address [address] [place] [address] Care Team Providers Care Concrete Worker Name Role Phone No, Physician Primary Care Provider [phone] Allergies Active Allergy Reactions Criticality Noted Date [...] 08/11/2020 MMR 03/04/2020 Tdap 12/18/2019 Varicella 03/04/2020 Social History Tobacco Use Types Packs/Day Years [...] and Family Not on file 07/21/2019 Attends Jainism Services Not on file 07/21 Active Member of Clubs or Organizations Not on f ile 07/21/2019 Attends Club or Organization Meetings Not on faisal e 07/21/2019 Marital Status 07/21/2019 Exercise Vital Sign Answer Date Recorde d Days of Exercise per Week 3 days 2018 Minutes of Exercise per Session 30 min 07/21/2019 [place] Depression Scale Answer Date Recorded [place] Depression Scale Total 2 04/14/2020 The thought of harming myself has occurred to me . Never 04/14/2020 Comments No Sex and Gender Information Value Date Recorded Sex Assigned at Not on file Legal Sex Female 10:27 AM CDT Gender Identity Female 02/11/2020 6:21 PM CDT Sexual Orientation Choose not to disclose 2019 6:22 PM CDT Last Filed Vital Signs Vital Sign Reading Time Taken Comments Blood Pressure 112/64 11/15/2020 3:41 PM LUMBER ESTIMATOR Pulse 87 03/04/2020 8:05 AM CDT Temperature 36.8 C (98.2 F) 03/04/2020 8:05 AM CDT Respiratory Rate 18 11/15/2020 3:41 PM LUMBER ESTIMATOR Oxygen Saturation 99% 03/04/2020 8:05 AM CDT Inhaled Oxygen Concentration - - Weight 113.9 kg (251 lb) 11/15/2020 3:41 PM LUMBER ESTIMATOR Height 167.6 cm (5' 6 ) 11/15/2020 3:41 PM LUMBER ESTIMATOR Body Mass Index 40.51 11/15/2020 3:41 PM LUMBER ESTIMATOR Plan of Treatment Not on file Insurance [facility] Advance Directives For more information, please contact: [phone] * Full Code (Latest Code Status on File) Date Activated Date Inactivated Comments 03/03/2020 6:21 AM 03/04/2020 4:24 PM * Full Code Date Activated Date Inactivated Comments 03/02/2020 9:01 PM 03/03/2020 6:21 AM Full CPR in ca se of cardiopulmonary arrest Care Teams Concrete Worker Relationship Specialty Start Date End Date No, Physician PCP - General 07/03/19
[2025-01-16 15:01] VITALS: BP 130/78; PULSE 91; RESP 18; TEMP 36.3; O2SAT 99
--- NOTE | 2025-01-16 16:35 | ED_ITS ---
HPI - General Adult General Chief complaint: Back Pain/Injury Stated complaint: middle low back pain, 14 weeks preg. Time Seen by Provider: 01/16/25 15:01 History of Present Illness HPI narrative: 29-year-old female present to the emergency department for evaluation for lower back pain and hip pain. Patient is 14 weeks . Patient has had an ultrasound confirming an IUP. This is the patient's 4th . Patient does not suspect she is dehydrated. Patient denies any uterine cramping, vaginal bleeding, vaginal discharge. Patient denies any falls or injuries. Patient denies any urinary symptoms. Related Data Home Medications ?Medication ?Instructions ?Recorded ?Confirmed ?Last Taken ?Type vitamin no.167-folic acid 1 tablet PO DAILY 04/29/23 01/11/25 1 Day Ago History 400 mcg-dha 25 mg chewable tablet ~08/02/23 (One-A-Day ) ferrous sulfate 325 mg (65 mg 325 mg PO DAILY 02/14/24 01/11/25 Unknown History iron) tablet fexofenadine 60 mg tablet (Natalia 60 mg PO Q12H 11/18/24 01/11/25 Unknown History Allergy) Allergies Allergy/AdvReac Type Severity Reaction Status Date / Time ibuprofen Allergy Severe Swelling Verified 01/16/25 14:51 of Lip/Tongue/Throat Penicillins Allergy Hives Verified 01/16/25 14:51 Review of Systems 2 Review of Systems: All systems reviewed & are unremarkable except as noted in HPI and below PMFSH Past Medical History Medical History Abnormal glucose tolerance in Obesity Asthma Surgical History Surgical History History of delivery Family History Family History Other Unknown family medical history Social History Social History Smoking status: Never smoker Second hand tobacco smoke exposure: No Alcohol intake: never Substance use: never Substance use type: does not use Do You Feel Safe in your Home?: Yes Lack of Transportation: No Lack of Food: Never True Current Housing: I Have Housing Concerned About Future Housing: No Difficulty Paying Gas/Electric Bills: No Difficulty Paying for Meds: No Currently Unemployed: No Education: High School Diploma/GED Difficulty w/ Childcare or Family Care: No Living arrangements: with family Additional living arrangements comments: spouse and kids Occupation/Education: unemployed Gender identity (if verbalized by the patient): Female Sexual Orientation (if Verbalized by the Patient): Straight or Heterosexual Spiritual care concerns: No Exam 2 Narrative: APPEARANCE: Well appearing, no pain, no distress, well-nourished. HEAD: normocephalic, atraumatic. EYES: PERRLA/EOMI, conjunctivae clear. NOSE: Normal no drainage EARS:TMS clear with good light reflex. THROAT: Pharynx clear, no exudate. NECK: Supple. No adenopathy, no masses. RESPIRATORY: Airway patent, respirations nonlabored. Clear to auscultation bilaterally, no rales, rhonchi, wheezing. CARDIOVASCULAR: Regular rate and rhythm without murmurs rubs or gallops. ABDOMINAL: Soft, nontender, nondistended, normal bowel sounds MUSCULOSKELETAL: Lower back tenderness to palpation without deformity NEURO: Alert. Cranial nerves II through XII intact. Good gait. Good coordination SKIN: Warm, dry. Normal Color Course Vital Signs Vital signs: Vital Signs Temperature 97.4 F L 01/16/25 15:01 Pulse Rate 91 01/16/25 15:01 Respiratory Rate 18 01/16/25 15:01 Blood Pressure 130/78 01/16/25 15:01 Pulse Oximetry 99 01/16/25 15:01 Temperature 97.4 F L 01/16/25 15:01 Pulse Rate 95 01/16/25 18:27 Respiratory Rate 18 01/16/25 18:27 Blood Pressure 144/81 H 01/16/25 18:27 Pulse Oximetry 100 01/16/25 18:27 Medical Decision Making [facility] Narrative Medical decision making narrative: 29-year-old female presents emergency department for evaluation for lower back pain. Patient is currently afebrile with no leukocytosis hemoglobin 11.7. No acute abnormalities on the patient's CMP UA was negative for infection. Patient did feel improved with IV fluids and pain medications. Patient was requesting discharge home. Patient was encouraged close follow-up with OB Gyne. All questions concerns were addressed and patient was well-appearing at time of discharge. Differential Diagnosis Differential Diagnosis: Dehydration, UTI, back strain, pain Vital Signs Vital Signs: Vital Signs Temperature 97.4 F L 01/16/25 15:01 Pulse Rate 91 01/16/25 15:01 Respiratory Rate 18 01/16/25 15:01 Blood Pressure 130/78 01/16/25 15:01 Pulse Oximetry 99 01/16/25 15:01 Temperature 97.4 F L 01/16/25 15:01 Pulse Rate 95 01/16/25 18:27 Respiratory Rate 18 01/16/25 18:27 Blood Pressure 144/81 H 01/16/25 18:27 Pulse Oximetry 100 01/16/25 18:27 Lab Data Lab results reviewed: Yes I reviewed the patient's lab results. 01/16/25 16:29 01/16/25 16:29 Labs: Lab Results 01/16/25 01/16/25 Range/Units 16:29 16:30 WBC 8.9 (4.5-10.0) K/mm3 RBC 4.14 L (4.2-5.4) M/mm3 Hgb 11.7 L (12.0-15.0) g/dL Hct 35.1 L (37.0-47.0) % MCV 84.8 (80-100) fl MCH 28.3 (26-34) pg MCHC 33.3 (32-36) g/dl RDW 15.7 H (11.5-14.5) % Plt Count 267 (150-375) k/mm3 MPV 10.5 H (7.4-10.4) fl Immature Gran % (Auto) 0.2 (0-0.5) % Neut % (Auto) 66.9 (45.5-73.1) % Lymph % (Auto) 24.1 (18.3-44.2) % Martin % (Auto) 4.9 (2.6-8.5) % Eos % (Auto) 3.7 (0-4.4) % Baso % (Auto) 0.2 (0.2-1.2) % Lymph # (Auto) 2.13 (0.9-3.2) K/mm3 Martin # (Auto) 0.4 (0.1-0.6) K/mm3 Eos # (Auto) 0.3 (0-0.3) K/mm3 Baso # (Auto) 0.0 (0.0-0.1) K/mm3 Abs Immat Gran (auto) 0.02 (0.00-0.031) K/mm3 Absolute Neuts (auto) 5.9 (1.3-6.7) K/mm3 Absolute Nucleated RBC 0.000 (0.0-0.012) K/mm3 Nucleated RBC % 0.0 (0.0-0.2) % Sodium 136 L (137-145) mmol/L Potassium 3.8 (3.4-5.0) mmol/L Chloride 106 (98-107) mmol/L Carbon Dioxide 19 L (22-30) mmol/L Anion Gap 11 (4-12) mmol/L BUN 7 (7-17) mg/dL Creatinine 0.46 L (0.7-1.0) mg/dL Estim Creat Clear Calc Not Reportable Estimated GFR > 60 (59 - ) Glucose 99 (65-110) mg/dL Calcium 9.7 (8.4-10.2) mg/dL Total Bilirubin 0.2 (0.2-1.3) mg/dL AST 19 (14-36) U/L ALT 15 (6-35) U/L Alkaline Phosphatase 76 (38-126) U/L Total Protein 8.0 (6.3-8.2) g/dL Albumin 4.1 (3.5-5.1) g/dL Urine Color Yellow (Yellow) Urine Appearance Clear (Clear) Urine pH 6.5 (5.0-9.0) Ur Specific [place] 1.019 (1.001-1.035) Urine Protein Negative (Negative) mg/dL Urine Glucose (UA) Negative (Negative) mg/dL Urine Ketones Negative (Negative) mg/dL Ur Blood (Man) Negative (Negative) Urine Nitrate Negative (Negative) Urine Bilirubin Negative (Negative) Urine Urobilinogen 0.2 (<2.0) mg/dL Leukocyte Esterase Rfl Negative (Negative) BOBO/UL Discharge Plan Discharge Clinical Impression: Back pain affecting Patient Disposition: Home, Self-Care Condition: Stable Instructions: Antibiotic Form, Acute Low Back Pain (ED) Additional Instructions: Tylenol for pain control. Avoid ibuprofen. Drink plenty of fluids. Have close follow-up with your primary care physician and with OB Gyne. Patient Language: [place] Prescriptions: No Action ferrous sulfate 325 mg (65 mg iron) tablet 325 mg PO DAILY One-A-Day 400 mcg- 25 mg tablet,chewable 1 tablet PO DAILY fexofenadine [Natalia Allergy] 60 mg tablet 60 mg PO Q12H albuterol sulfate 90 mcg/actuation HFA aerosol inhaler 1 inh inhalation Q4H Qty: 8.5 0RF Follow-up/Referrals: PHYSICIAN,DIRECTOR OF STUDENT FINANCIAL SERVICES [Primary Care Provider] -
[2025-01-16 16:36] LABS: Basophils Percent Auto 0.2 % (0.2-1.2); Eosinophils Absolute Auto 0.3 K/mm3 (0-0.3); Eosinophils Percent Auto 3.7 % (0-4.4); Hematocrit 35.1 % (37.0-47.0); Hemoglobin 11.7 g/dL (12.0-15.0); Immature Granulocyte Absolute 0.02 K/mm3 (0.00-0.031); Immature Granulocyte Percent A 0.2 % (0-0.5); Lymphocytes Absolute Auto 2.13 K/mm3 (0.9-3.2); Lymphocytes Percent Auto 24.1 % (18.3-44.2); Mean Corpuscular HGB Conc 33.3 g/dl (32-36); Mean Corpuscular Hemoglobin 28.3 pg (26-34); Mean Corpuscular Volume 84.8 fl (80-100); Mean Platelet Volume 10.5 fl (7.4-10.4); Monocytes Absolute Auto 0.4 K/mm3 (0.1-0.6); Monocytes Percent Auto 4.9 % (2.6-8.5); Neutrophils Absolute Auto 5.9 K/mm3 (1.3-6.7); Neutrophils Percent Auto 66.9 % (45.5-73.1); Platelet Count Result 267 k/mm3 (150-375); Red Blood Count 4.14 M/mm3 (4.2-5.4); Red Cell Distribution Width 15.7 % (11.5-14.5); White Blood Count 8.9 K/mm3 (4.5-10.0)
[2025-01-16 16:38] LABS: Add Urine Microscopic? NO; Appearance Urine Clear (Clear); Bilirubin Urine Negative (Negative); Blood Urine Negative (Negative); Color Urine Yellow (Yellow); Glucose Urine UA Negative (Negative); Ketones Urine Negative (Negative); Leukocyte Esterase Ur Negative LEU/UL (Negative); Nitrate Urine Negative (Negative); Protein Urine Negative (Negative); Specific Grav Ur 1.019 (1.001-1.035); Urobilinogen Urine 0.2 mg/dL (<2.0); pH Urine 6.5 (5.0-9.0)
[2025-01-16 16:47] LABS: Alanine Aminotransferase 15 U/L (6-35); Albumin Level 4.1 g/dL (3.5-5.1); Alkaline Phosphatase 76 U/L (38-126); Anion Gap 11 mmol/L (4-12); Aspartate Amino Transferase 19 U/L (14-36); Bilirubin,Total 0.2 mg/dL (0.2-1.3); Blood Urea Nitrogen 7 mg/dL (7-17); Calcium 9.7 mg/dL (8.4-10.2); Carbon Dioxide 19 mmol/L (22-30); Chloride 106 mmol/L (98-107); Estimated Glomerular Filt Rate > 60; Glucose 99 mg/dL (65-110); Potassium 3.8 mmol/L (3.4-5.0); Sodium 136 mmol/L (137-145)
[2025-01-16] MEDS: LACTATED RINGERS 1,000 ML 999 ML IV CONT (16:54)
[2025-01-16] MEDS: HYDROmorphone HCL INJ (*CRX) 1 MG/ML SYR 0.5 MG IV PUSH (18:25)
[2025-01-16 18:27] VITALS: BP 144/81; PULSE 95; RESP 18; O2SAT 100
== END 2025-01-16 19:04 | disposition home or self-care (01) ==
PROVIDERS: Emergency Provider Emergency Medicine
DX: O99.891 Other specified diseases and conditions complicating pregnancy (principal); M54.50 Low back pain, unspecified; O99.512 Diseases of the respiratory system complicating pregnancy, second trimester; J45.909 Unspecified asthma, uncomplicated; O99.212 Obesity complicating pregnancy, second trimester; E66.9 Obesity, unspecified; Z3A.14 14 weeks gestation of pregnancy
CPT/HCPCS: 36415; 80053; 81003; 85025; 96361; 96374; 99284; J1171; J7120